=== PATIENT | male | born 1970 | race Caucasian/White ===

== ENCOUNTER 2021-09-01 19:03 | Emergency (ER) | payer OTHER ==
[~2021-09-01] VITALS: Ht 180.3 cm; Wt 74.8 kg
[2021-09-01 19:13] VITALS: BP 112/73
--- NOTE | 2021-09-01 19:42 | NUR ---
Note alyssaone in EDM - 09/01/21 at 1952 by LUPE NO NURSING INTERVENTION REQUIRED. Patient discharged with v/s stable. Written and verbal after care instructions given and explained. Patient alert, oriented and verbalized understanding of instructions. Ambulatory with steady gait. All questions addressed prior to discharge. ID band removed. Patient advised to follow up with PMD. Rx of MOTRIN given. Patient educated on indication of medication including possible reaction and side effects. Opportunity to ask questions provided and answered.
--- NOTE | 2021-09-01 21:20 | NUR ---
CALLED PT, GAYATHRI BANEGASE, LWBS
== END 2021-09-01 21:20 | disposition left against medical advice (07) ==
LOC: MED 19:03
DX: R51.9 Headache, unspecified (principal); Z53.21 Procedure and treatment not carried out due to patient leaving prior to being seen by health care provider